=== PATIENT | male | born 2000 | race African-American/Black ===

== ENCOUNTER 2024-02-01 22:47 | Emergency (ER) | payer MEDICAID ==
[~2024-02-01] VITALS: Ht 172.7 cm; Wt 61.2 kg
[2024-02-01 22:55] VITALS: BP_SYST 145; PULSE 105; RESP 22; TEMP 99; O2SAT 96
[2024-02-01 23:00] VITALS: TEMP 99
[2024-02-01 23:02] VITALS: BP_SYST 145; PULSE 101; RESP 20; O2SAT 96
== END 2024-02-01 23:00 ==
LOC: SED 22:47
DX: Z02.89 Encounter for other administrative examinations (principal); R42 Dizziness and giddiness
CPT/HCPCS: 99283